=== PATIENT | female | born 1985 | race Two or more races ===

== ENCOUNTER → 2019-06-15 | Outpatient (REF) | payer OTHER | LOC: M SFHCLERA 10:00 | PROVIDERS: ATTEND Physician Assistant | DX: J02.9 Acute pharyngitis, unspecified (principal) ==

== ENCOUNTER → 2019-09-11 | Outpatient (REF) | payer OTHER ==
[2019-09-11 17:15] LABS: HEMATOCRIT 38.4 % (36.0-47.0); HEMOGLOBIN 12.6 g/dl (12.0-15.5); MEAN CORPUSCULAR HEMOGLOBIN 27.2 pg (27.0-33.0); MEAN CORPUSCULAR HGB CONC 32.8 g/dl (32.0-36.5); MEAN CORPUSCULAR VOLUME 82.9 fl (80.0-96.0); PLATELET COUNT, AUTOMATED 405 10^3/uL (150-450); RED BLOOD COUNT 4.63 10^6/uL (4.00-5.40); WHITE BLOOD COUNT 9.5 10^3/uL (4.0-10.0)
[2019-09-12 12:21] LABS: HIV 1&2 SCREEN CENTAUR NEGATIVE (NEGATIVE); RUBELLA IgG QUALITATIVE IMMUNE (IMMUNE)
== END ==
LOC: M PLALAB 15:17
PROVIDERS: ATTEND Advanced Practice Midwife
DX: Z34.81 Encounter for supervision of other normal pregnancy, first trimester (principal)

== ENCOUNTER → 2019-10-09 | Outpatient (REF) | payer OTHER ==
[2019-10-09 17:06] LABS: CHLAMYDIA DNA AMPLIFICATION NEGATIVE (NEGATIVE); GC DNA AMPLIFICATION NEGATIVE (NEGATIVE)
== END ==
LOC: M SFHCWAGY 14:46
PROVIDERS: ATTEND Advanced Practice Midwife
DX: Z34.81 Encounter for supervision of other normal pregnancy, first trimester (principal)

== ENCOUNTER → 2019-11-22 | Outpatient (CLI) | payer OTHER ==
--- NOTE | 2019-11-22 17:09 | REP ---
Clinical: Anatomical evaluation. Comparison: None for . Findings: Examination demonstrates a single live intrauterine in variable presentation. motion is identified by technologist. Placenta is noted posterior and grade zero without evidence for placenta previa or abruption. Amniotic fluid volume is normal. Cervix measures 3.3 cm in length and appears closed. No evidence for nuchal cord. Gestational age by LMP 18 weeks 5 days with RUBEN 04/19/2020 . Gestational age by current measurements 18 weeks 6 days with RUBEN 04/18/2020 . FHR equals 139 beats per minute. BPD 4.3 cm 19 weeks 0 days HC 15.9 cm 18 weeks 5 days AC 13.6 cm 19 weeks 0 days FL 3.0 cm 19 weeks 3 days HL 2.9 cm 19 weeks 3 days HC/AC ratio 1.17 Estimated weight 276 grams (63rd percentile). Anatomical assessment demonstrates normal structures including cranium, choroid plexus, cavum, cerebellum/posterior fossa, lungs, four-chamber heart/ventricular outflow tracts, diaphragm, stomach, cord insertion/three-vessel cord, kidneys/bladder, spine, and extremities. Impression: Single live intrauterine in variable presentation demonstrating appropriate interval growth. Limited evaluation of the facial features. Remainder of the anatomical assessment is complete and normal.
== END ==
LOC: M WHC 12:50
PROVIDERS: ATTEND Advanced Practice Midwife
DX: Z34.82 Encounter for supervision of other normal pregnancy, second trimester (principal)

== ENCOUNTER → 2019-12-11 | Outpatient (CLI) | payer OTHER ==
[~2019-12-11] MED LIST: ACET-683 PO; CLAR10CA3 PO; IBUP80TA PO; IRON325T2 PO; METF10004 PO; PRENTAB9 PO; ZYRTTAB8 PO
--- NOTE | 2019-12-11 14:13 | REP ---
OBSTETRIC SONOGRAPHY: HISTORY: Supervision of followup anatomy. Comparison study November 22, 2019. FINDINGS: Scanning through the gravid uterus demonstrates a viable single intrauterine gestation in a breech lie. motion is observed and heart rate is recorded at 149 beats per minute. A posterior grade 1 placenta is seen without evidence of previa. Amniotic fluid is subjectively normal. Closed cervical length is measured transabdominally at 3.5 cm. There has been appropriate interval growth. face and profile, nose and lips are seen today and felt to be unremarkable. The following additional anatomic structures are again identified and felt to be unremarkable as well: cranium, four-chamber heart with left and right ventricular outflow tract views, diaphragm, left-sided stomach, abdominal wall cord insertion, three-vessel cord, kidneys and bladder. BIOMETRY CHART: BPD 5.1 cm = 21 weeks 3 days HC 18.6 cm = 21 weeks 0 days AC 17.1 cm = 22 weeks 1 day FL 3.9 cm = 22 weeks 3 days HL 3.6 cm = 22 weeks 5 days HC/AC ratio normal 1.09 Cephalic index normal 0.77. Estimated weight 476 grams, 1 pound 0 ounces, 70th percentile for 21 weeks 3 days. IMPRESSION: Viable single intrauterine gestation at 21 weeks 3 days by today's composite criteria. Expected gestational age estimate based on prior sonography is 21 weeks 3 days as well. RUBEN by prior sonography 04/19/2020. anatomic survey is felt to be complete in conjunction with the prior study.
== END ==
LOC: M WHC 10:34
PROVIDERS: ATTEND Nurse Practitioner Women's Health
DX: Z36.2 Encounter for other antenatal screening follow-up (principal); Z3A.21 21 weeks gestation of pregnancy

== ENCOUNTER → 2020-01-31 | Outpatient (REF) | payer OTHER ==
[2020-03-19 20:07] LABS: HEMATOCRIT 31.3 % (36.0-47.0); HEMOGLOBIN 9.9 g/dl (12.0-15.5); MEAN CORPUSCULAR HEMOGLOBIN 26.4 pg (27.0-33.0); MEAN CORPUSCULAR HGB CONC 31.6 g/dl (32.0-36.5); MEAN CORPUSCULAR VOLUME 83.5 fl (80.0-96.0); PLATELET COUNT, AUTOMATED 342 10^3/uL (150-450); RED BLOOD COUNT 3.75 10^6/uL (4.00-5.40); WHITE BLOOD COUNT 9.3 10^3/uL (4.0-10.0)
== END ==
LOC: M SFHCWAGY 08:50
PROVIDERS: ATTEND Advanced Practice Midwife
DX: Z34.80 Encounter for supervision of other normal pregnancy, unspecified trimester (principal); Z3A.24 24 weeks gestation of pregnancy
CPT/HCPCS: 36415; 82950; 85027; 86850; 86900; 86901; G0463

== ENCOUNTER → 2020-02-07 | Outpatient (CLI) | payer OTHER ==
--- NOTE | 2020-03-16 07:41 | REP ---
OBSTETRIC SONOGRAPHY HISTORY: Uterine size-date discrepancy. Third trimester study growth and MADDIE. Estimated date of delivery (RUBEN) 04/19/2020. FINDINGS: Scanning through the gravid uterus demonstrates a single intrauterine gestation in a cephalic lie. The placenta is posterior grade 1 without evidence of previa or abruption. Amniotic fluid is subjectively normal. MADDIE is normal at 17.1 cm. heart rate is recorded at 140 beats per minute. Closed cervical length is 4.2 cm measured transabdominally. BIOMETRY CHART: BPD 79 mm 31 weeks 6 days Head Circumference 290 mm 32 weeks 0 days Abdominal Circumference 266 mm 30 weeks 5 days Femur Length 60 mm 31 weeks 1 day Humeral Length 58 mm 33 weeks 4 days Estimated Weight 1689 g 83rd Percentile IMPRESSION: Viable single intrauterine gestation at 31 weeks 3 days by todays criteria. Estimated date of delivery (RUBEN) 04/07/2020. Estimated weight 83rd percentile. MTDD
== END ==
LOC: M WHC 08:06
PROVIDERS: ATTEND Advanced Practice Midwife
DX: O26.843 Uterine size-date discrepancy, third trimester (principal)

== ENCOUNTER → 2020-03-04 | Outpatient (CLI) | payer OTHER ==
--- NOTE | 2020-03-20 13:17 | REP ---
LIMITED OBSTETRICAL ULTRASOUND COMPARISON: 02/07/2020 CLINICAL: Growth evaluation. TECHNIQUE: Transabdominal obstetrical ultrasound with color Doppler evaluation. FINDINGS: Examination demonstrates a single live advanced gestation in cephalic presentation. motion was identified by the technologist. Placenta is noted posteriorly and grade 2 without evidence for placenta previa or abruption. Amniotic fluid volume is normal. Cervix measures 3.3 cm in length and appears closed. Gestational age by last menstrual period (LMP) 33 weeks 3 days with estimated date of delivery 04/19/2020. Gestational age by current measurements 35 weeks 1 day with estimated date of delivery 04/07/2020. heart rate 136 beats per minute. Amniotic fluid index (MADDIE) 12.1 cm. BIOMETRIC MEASUREMENTS: BPD 8.5 cm 34 weeks 1 day HC 31.5 cm 35 weeks 2 days AC 31.9 cm 35 weeks 6 days FL 6.6 cm 34 weeks 0 days HL 6.2 cm 36 weeks 1 day HC/AC ratio 0.99 Estimated weight 2599 g 80th percentile based on age by LMP IMPRESSION: Single live advanced gestation in cephalic presentation demonstrating appropriate estimated weight and growth. [facility]
== END ==
LOC: M WHC 09:44
PROVIDERS: ATTEND Advanced Practice Midwife
DX: O24.415 Gestational diabetes mellitus in pregnancy, controlled by oral hypoglycemic drugs (principal); Z3A.33 33 weeks gestation of pregnancy

== ENCOUNTER 2020-03-16 22:31 | Outpatient (CLI) | payer OTHER ==
[~2020-03-16] VITALS: Ht 154.9 cm; Wt 85.6 kg
[2020-03-16 22:47] VITALS: BP 107/61
[2020-03-16 23:51] LABS: APPEARANCE, URINE CLEAR (CLEAR); BACTERIA, URINE AUTO 1+ (NEGATIVE); BILIRUBIN, URINE AUTO NEGATIVE (NEGATIVE); BLOOD, URINE BLOOD NEGATIVE (NEGATIVE); COLOR, URINE STRAW (YELLOW); GLUCOSE, URINE (UA) AUTO NEGATIVE (NEGATIVE); KETONE, URINE AUTO NEGATIVE (NEGATIVE); LEUKOCYTE ESTERASE, URINE AUTO TRACE (NEGATIVE); NITRITE, URINE AUTO NEGATIVE (NEGATIVE); PROTEIN, URINE AUTO NEGATIVE (NEGATIVE); RBC, URINE AUTO 1 /HPF (0-3); SPECIFIC GRAVITY URINE AUTO 1.005 (1.002-1.035); SQUAMOUS EPITHELIAL CELL UR AU 1 /HPF (0-6); UROBILINOGEN, URINE AUTO 0.2 mg/dL (0.0-2.0); WBC, URINE AUTO 1 /HPF (0-3)
[2020-03-17] VITALS (26 sets, daily range): BP systolic 97–128; BP diastolic 51–69
[2020-03-17] MEDS ORDERED: PROMETHAZINE INJ 25 MG/ML VIAL (J2550) As Ordered ONE (00:37)
[2020-03-17] MEDS ORDERED: BUTORPHANOL 2 MG/ML INJ (J0595) As Ordered ONE (00:37)
[2020-03-17] MEDS ORDERED: PROMETHAZINE INJ 25 MG/ML VIAL (J2550) IV ONE (00:45)
[2020-03-17] MEDS ORDERED: BUTORPHANOL 2 MG/ML INJ (J0595) IV ONE ×2 (00:45→06:00)
[2020-03-17] MEDS: BETAMETHASONE SOLUSPAN 6MG/ML 5ML VIAL (J0702 PER 3MG) IM SCH (01:02)
[2020-03-17 01:27] LABS: HEMATOCRIT 33.8 % (36.0-47.0); HEMOGLOBIN 10.4 g/dl (12.0-15.5); MEAN CORPUSCULAR HEMOGLOBIN 24.9 pg (27.0-33.0); MEAN CORPUSCULAR HGB CONC 30.8 g/dl (32.0-36.5); MEAN CORPUSCULAR VOLUME 80.9 fl (80.0-96.0); PLATELET COUNT, AUTOMATED 253 10^3/uL (150-450); RED BLOOD COUNT 4.18 10^6/uL (4.00-5.40); WHITE BLOOD COUNT 8.8 10^3/uL (4.0-10.0)
--- NOTE | 2020-03-17 01:29 | IPNPDOC ---
Text Note Date of Service The patient was seen on 03/17/20. NOTE Subjective: Ruchi is a 34-year-old female who is a at 35.1 weeks gestation with an RUBEN of 04/19/20. No records are available to review. She initiated care in her first trimester of with [facility]. Her has been complicated by A2GDM which she is taking Metformin 1000 mg PO BID. She presents to L&D tonight with complaints of contractions. She reports contractions have been occurring for a few days but more intense and regular tonight. At 1630 she reports contractions to be about every 9 minutes and rated them a 4 out of 10. She now reports her contractions are a 6 out of 10 for pain scale. She denies bloody show or vaginal bleeding. She denies leaking of fluid. Reports good movement. She is scheduled for an IOL on 03/29/20 OB History: -11/11/05: of living female at 38 weeks weighting 7 lbs 9 oz., no complications -06/28/11: of living female at 38 weeks weighting 8 lbs, no complications -10/24/16: of living female at 37 weeks weighting 8 lbs 9 oz, no complications OB labs: A+, negative antibody, rubella immune, Hepatitis C negative, Hepatitis B negative, RPR nonreactive, GC/CT negative, urine culture negative. Medical history: GDM and colitis Surgical history: gallbladder and wisdom teeth Family history: lung cancer, HTN, DM Social history: . Former social smoker. Denies alcohol or drug use during . History of chlamydia and HPV with condyloma. Objective: VS and labs: see below. FHR 120, moderate variability, positive accelerations, no decelerations. Contractions every 2 to 9 minutes. SVE by nurse 1.5 hours ago 3/25/-3, soft. Exam done now by practitioner is 4/75/-2, anterior, soft, scant show. A+O x3. Appears uncomfortable with some contractions-grimace. Respiratory rate is regular with no use of accessory muscles. Abdomen: gravid and soft to palpation between contractions. Contractions palpate mild to moderate. Cephalic presentation noted by bedside ultrasound. Assessment: IUP at 35.1 week gestation, A2GDM, rule out labor, Category I FHR tracing Plan: Start IV. Betamethasone to be given IM now and again in 24 hours. Labs obtained and sent for hold. UA obtained. GBS obtained. Ruchi desires something to help her sleep/rest. Stadol and Phenergan ordered. Will recheck cervix in morning or if pain or contractions increase in frequency. Will continue to monitor. VS,Fishbone, I+O VS, Fishbone, I+O VS: BP: 115/75; HR: 88; RR: 18; Temp: 98.1 Fingerstick: 86 Item Value Date Time Urine Color STRAW 03/16/202329 Urine Appearance CLEAR 03/16/202329 Urine pH 9.0 UNITS 03/16/202329 Urine Specific [place] 1.005 03/16/202329 Urine Protein NEGATIVE mg/dL 03/16/202329 Urine Glucose (Auto)(UA) NEGATIVE mg/dL 03/16/202329 Urine Ketones (Auto) NEGATIVE mg/dL 03/16/202329 Urine Blood NEGATIVE 03/16/202329 Urine Nitrite NEGATIVE 03/16/202329 Urine Bilirubin NEGATIVE 03/16/202329 Urine Urobilinogen 0.2 mg/dL 03/16/202329 Urine Leukocyte Esterase (Auto) TRACE H 03/16/202329 Urine RBC (Auto) 1 /HPF 03/16/202329 Urine WBC (Auto) 1 /HPF 03/16/202329 Urine Hyaline Casts (Auto) 0 /LPF 03/16/202329 Urine Bacteria (Auto) 1+ H 03/16/202329 Urine Squamous Epithelial Cells 1 /HPF 03/16/202329 DERECK NAIDU CNM Mar 17, 2020 01:29
[2020-03-17] MEDS ORDERED: PROMETHAZINE INJ 25 MG/ML VIAL (J2550) IM ONE (06:00)
[2020-03-17] MEDS: metFORMIN (GLUCOPHAGE) 1000 MG TABLET PO SCH ×2 (08:00→17:55)
[2020-03-17] MEDS ORDERED: SLF 3 ML SYR IV PRN (16:30)
[2020-03-17] MEDS ORDERED: diphenhydrAMINE 25MG CAP PO ONE (20:00)
[2020-03-17] MEDS ORDERED: diphenhydrAMINE 50MG/ML VIAL (J1200) IV ONE (20:00)
[2020-03-17] MEDS ORDERED: SLF 3 ML SYR IV SCH (22:00)
[2020-03-18 00:58] VITALS: BP 104/56
[2020-03-18] MEDS: BETAMETHASONE SOLUSPAN 6MG/ML 5ML VIAL (J0702 PER 3MG) IM SCH (00:59)
== END 2020-03-18 01:20 | disposition home or self-care (01) ==
LOC: M LDO 22:31
PROVIDERS: ATTEND Advanced Practice Midwife
DX: O47.03 False labor before 37 completed weeks of gestation, third trimester (principal); O24.415 Gestational diabetes mellitus in pregnancy, controlled by oral hypoglycemic drugs; Z3A.35 35 weeks gestation of pregnancy
CPT/HCPCS: 59025; 76815; 81001; 85027; 87081; 96372; 96374; 96375; 96376; G0378; G0463; J0595; J0702

== ENCOUNTER 2020-03-29 07:38 | Inpatient (IN) | payer OTHER ==
[2020-03-29] VITALS (21 sets, daily range): BP systolic 98–137; BP diastolic 56–93
[~2020-03-29] VITALS: Ht 154.9 cm; Wt 84.9 kg
[2020-03-29] MEDS ORDERED: OXYTOCIN DRIP 30 UNITS in IV 1 EA IV SCH ×2 (08:00→19:45)
--- NOTE | 2020-03-29 08:07 | HPEPDOC ---
Obstetrical History & Physical General Date of Admission Mar 29, 2020 at 07:38 History of Present Illness 34 yo at 37 0/7 weeks by 8 week ultrasound (EDC=04/19/2020) presents for lab or induction. The indication for induction <39 weeks is poorly controlled A2 Gestational diabetes. She is on Metformin 100 mg twice a day. Age: 34 : 5 Term: 3 Pre-term: 0 Abortions: 1 Livin Care Care: Good Care Dating Final EDC: Apr 19, 2020 Final EDC for Daily Update: Apr 19, 2020 Final EDC by: 1st trimester (US) EGA at Admission: 37 Antepartum Course Diagnos(e)s A2GDM on MEtformin 100 mg BID Past Medical History Past Obstetrical History : Past Obstetrical History: Multigravida Date of Delivery: November 11, 2005 Type of Delivery: Spontaneous Vaginal Del. Sex of : Female Complications: No Past Medical History Medical History none Surgical History: Gallbladder Social History Marital Status: Family situation: Spouse/partner home * Smoker: non-smoker Alcohol: Denies Abuse Violence Screening Have you been hit/kicked/slapp: No Have you been sexually assault: No Allergies Coded Allergies: Penicillins (Verified Allergy, Unknown, 03/17/20) Physical Examination Physical Examination GENERAL: Alert and oriented times three. BREAST: . ABDOMEN: Gravid and non-tender to touch. FETUS: Is vertex (VTX) by sterile vaginal examination (SVE), fetus is vertex (VTX) by Oziel. HEART RATE: Regular rate and rhythm. LUNGS: Clear to auscultation (CTA). EXTREMITIES: No edema. No clonus. Deep tendon reflexes (DTRs) + . Laboratory Data 24H LABS Laboratory Tests 2 03/29/20 07:49: Serology Scanned Report Hepatitis B Testing Pertinent Laboratoy Data RBC Antibody Screen: Negative HIV: Negative Hepatitis B: Negative Hepatitis C: Negative Rapid Plasma Reagin: Immune Chlamydia/Gonorrhea: Negative Group B Streptococcus: Negative Glucose Tolerance Test: 146 Steroid Therapy Steroid Therapy: No Vaginal Examination Dilation: 4 cm Effacement: 70% Station: -2 Cervical Consistency: Medium Cervical Position: Middle Presentation: Cephalic presentation Assessment Variability: Moderate Accelerations: Positive Decelerations: None Tocometer Contractions: No Assessment/Plan Assessment Pt is a 34 year-old (G)5 para (P)3-0-1-3 at 37+0 weeks by 8-week ultrasound. Presents to Labor and Delivery (L&D) for induciton due to A2GDM. Plan Admit and orient. 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 Group B Streptococcus (GBS) [negative]. Labs and intravenous (IV) per unit protocol. Counseled on Pitocin and induction of labor (IOL). Anticipate [normal spontaneous delivery ()]. C-S as appropriate. CHAPARRITA NORTON MD Mar 29, 2020 08:07
[2020-03-29 08:28] LABS: HEMOGLOBIN 10.6 g/dl (12.0-15.5); MEAN CORPUSCULAR HEMOGLOBIN 24.7 pg (27.0-33.0); MEAN CORPUSCULAR HGB CONC 30.3 g/dl (32.0-36.5); MEAN CORPUSCULAR VOLUME 81.4 fl (80.0-96.0); PLATELET COUNT, AUTOMATED 261 10^3/uL (150-450)
[2020-03-29] MEDS ORDERED: METF10004 PO (08:29)
[2020-03-29] MEDS ORDERED: IRON325T2 PO (08:29)
[2020-03-29] MEDS ORDERED: PRENTAB9 PO (08:29)
[2020-03-29] MEDS ORDERED: CLAR10CA3 PO (08:29)
[2020-03-29] MEDS ORDERED: ZYRTTAB8 PO ×2 (08:30→08:32)
[2020-03-29] MEDS ORDERED: ACET-683 PO (08:30)
[2020-03-29 08:41] LABS: GLUCOSE,RANDOM 99 MG/DL (LESS THAN 200)
[2020-03-29] MEDS: LR 1,000 ML IV SCH ×3 (08:52→16:15)
[2020-03-29] MEDS ORDERED: FENTANYL 2MCG/ML ROPIVACAINE 0.2% IN 0.9% NACL 100ML IVBAG As Ordered ONE (15:34)
[2020-03-29] MEDS ORDERED: ONDANSETRON 4MG/2ML VIAL IV PRN (16:30)
[2020-03-29] MEDS ORDERED: EPIDURAL/PCA KEYS XX PRN (16:30)
[2020-03-29] MEDS ORDERED: NALOXONE INJ 0.4MG/1ML VIAL (J2310 PER 1MG) IV PRN (16:30)
[2020-03-29] MEDS ORDERED: LACTATED RINGER'S 1000 ML IV PRN (16:30)
[2020-03-29] MEDS ORDERED: REFRIGERATOR IV KEYS XX PRN (16:30)
[2020-03-29] MEDS ORDERED: ePHEDrine SULFATE 25 MG/5 ML(5MG/ML) SYRINGE IV PRN (16:30)
[2020-03-29] MEDS ORDERED: diphenhydrAMINE 50MG/ML VIAL (J1200) IV PRN (16:30)
[2020-03-29] MEDS ORDERED: EPIDURAL COMMENT XX SCH (16:30)
[2020-03-29] MEDS ORDERED: FENTANYL/ROPIVACAINE/NACL BAG 100 ML EPIDURAL SCH (16:30)
--- NOTE | 2020-03-29 17:26 | DNPDOC ---
[facility] Delivery Note Delivery Note DATE OF DELIVERY: 03/29/2020 PREDELIVERY DIAGNOSIS: 37-0/7 weeks' gestation, A2 GDM, induction POST DELIVERY DIAGNOSIS: Delivered. PROCEDURE: Spontaneous vaginal delivery LUMP MAKER: Dr. Chaparrita Norton MD ANESTHESIA: none ESTIMATED BLOOD LOSS: 300 mL. FINDINGS: 8 pound 15 ounce female , Score 8/9 DELIVERY SUMMARY: Patient is a 34-year-old 5 now para 4-0-1-4 who was admitted to labor and delivery for induction due to A2 GDM. Pt received Oxytocin for induction. She had spontaneous vaginal delivery of a 8 lb 15 oz female with no delivery anesthesia. No nuchal cord. Shoulders delivered with ease. Placenta delivered spontaneously and appeared intact. IV Pitocin was given immediately after delivery of the placenta. No vaginal lacerations. Sponge counts correct. CHAPARRITA NORTON MD Mar 29, 2020 17:26
[2020-03-29] MEDS ORDERED: METHYLERGONOVINE MALEATE 0.2 MG TAB PO PRN (17:30)
[2020-03-29] MEDS ORDERED: IBUPROFEN 600MG TAB PO PRN (17:30)
[2020-03-29] MEDS ORDERED: DIBUCAINE 1% OINTMENT 30GM TOP PRN (17:30)
[2020-03-29] MEDS ORDERED: ACETAMINOPHEN TAB 650MG DOSE (2X325MG) PO PRN (17:30)
[2020-03-29] MEDS ORDERED: OXYTOCIN DRIP 30 UNITS in IV 1 EA IV ONE (17:30)
[2020-03-29] MEDS ORDERED: MEASLES,MUMPS,RUBELLA VACCINE INJ (MMR-II) (90707) SC SCH (17:30)
[2020-03-29] MEDS ORDERED: RHOGAM 300 MCG (1500 IU) INJ (J2790) IM SCH (17:30)
[2020-03-29] MEDS ORDERED: DOCUSATE SODIUM 100 MG CAP PO PRN (17:30)
[2020-03-29] MEDS: IBUPROFEN 800 MG TAB PO PRN (18:23)
[2020-03-29] MEDS ORDERED: METHYLERGONOVINE MALEATE 0.2 MG/ML VIAL (J2210) As Ordered ONE (18:35)
[2020-03-29] MEDS ORDERED: METHYLERGONOVINE MALEATE 0.2 MG/ML VIAL (J2210) IM ONE (19:00)
[2020-03-29] MEDS: ACETAMINOPHEN 500 MG TAB PO PRN (19:37)
[2020-03-29] MEDS ORDERED: miSOPROStol 200 MCG TAB (S0191) PR ONE (19:45)
[2020-03-30] MEDS: ACETAMINOPHEN 500 MG TAB PO PRN (02:08)
[2020-03-30 06:18] VITALS: BP 114/58
[2020-03-30] MEDS: PRENATAL VITAMINS CHEWABLE TABLET PO SCH (07:09)
[2020-03-30] MEDS: IBUPROFEN 800 MG TAB PO PRN ×2 (07:10→16:20)
[2020-03-30 18:00] VITALS: BP 114/68
[2020-03-31 06:01] VITALS: BP 99/58
[2020-03-31] MEDS: ACETAMINOPHEN 500 MG TAB PO PRN ×2 (06:12→14:13)
[2020-03-31] MEDS: PRENATAL VITAMINS CHEWABLE TABLET PO SCH (07:40)
[2020-03-31] MEDS: IBUPROFEN 800 MG TAB PO PRN (07:40)
[2020-03-31] MEDS ORDERED: INFLUENZA QUADRIVALENT PF VACCINE 0.5ML SYRINGE IM ONE (09:00)
[2020-03-31] MEDS ORDERED: ACET-683 PO (11:36)
[2020-03-31] MEDS ORDERED: IBUP80TA PO (11:36)
== END 2020-03-31 14:15 | disposition home or self-care (01) | DRG 807 ==
LOC: M LDI 07:38 → M OBS 22:20
PROVIDERS: ADMIT Specialist; ATTEND Specialist
PROC: 10E0XZZ Delivery of Products of Conception, External Approach (ICD-10-PCS; principal; 2020-03-29)
PROC: 3E033VJ Introduction of Other Hormone into Peripheral Vein, Percutaneous Approach (ICD-10-PCS; 2020-03-29)
DX: O24.425 Gestational diabetes mellitus in childbirth, controlled by oral hypoglycemic drugs (principal); Z37.0 Single live birth; Z3A.37 37 weeks gestation of pregnancy

== ENCOUNTER → 2020-08-18 | Outpatient (REF) | payer OTHER | LOC: M LAB REF 18:23 | PROVIDERS: ATTEND Family Medicine | DX: R09.81 Nasal congestion (principal) ==

== ENCOUNTER → 2020-11-12 | Outpatient (CLI) | payer OTHER ==
--- NOTE | 2020-11-12 09:19 | REPMRS ---
Patient History The patient states she has not had a clinical breast exam in over a year. Baseline mammogram Family history of breast cancer at age 54 in paternal aunt, ovarian cancer at age 45 in mother. patient states no breast complaints. Patient has signed the MRS history sheet. Digital Woman Screen Mammo: November 12, 2020 - Exam #: [id number] Bilateral CC and MLO view(s) were taken. Technologist: Priscilla Cruz, Technologist No prior studies available for comparison. FINDINGS: There are scattered fibroglandular densities. The Volpara volumetric breast density category is: B. There is no evidence of dominant mass, architectural distortion, or grouped microcalcification typical of malignancy. 3-D tomosynthesis shows no additional findings. Assessment: BI-RADS/ACR category 1 mammogram. Negative Mammogram. Recommendation Routine screening mammogram of both breasts in 1 year (for women over age 40). This patient's [facility] Lifetime Breast Cancer RIsk is estimated at 13.8 %. This mammogram was interpreted with the aid of an FDA-approved computer-aided dectection system. Electronically Signed By: Stewart Garrett MD 11/12/20 0919
== END ==
LOC: M WHC 08:31
PROVIDERS: ATTEND Physician Assistant
DX: Z12.31 Encounter for screening mammogram for malignant neoplasm of breast (principal); Z15.01 Genetic susceptibility to malignant neoplasm of breast; Z80.41 Family history of malignant neoplasm of ovary

== ENCOUNTER → 2020-11-27 | Outpatient (CLI) | payer OTHER ==
[2020-11-27 14:26] LABS: BASO % 0.7 % (0.0-1.0); EOS # 0.1 10^3/uL (0.0-0.5); EOS % 1.5 % (0.0-3.0); HEMATOCRIT 38.7 % (36.0-47.0); HEMOGLOBIN 12.1 g/dl (12.0-15.5); LYMPH # 1.9 10^3/uL (1.5-5.0); MEAN CORPUSCULAR HEMOGLOBIN 24.8 pg (27.0-33.0); MEAN CORPUSCULAR HGB CONC 31.3 g/dl (32.0-36.5); MEAN CORPUSCULAR VOLUME 79.3 fl (80.0-96.0); MONO # 0.5 10^3/uL (0.0-0.8); NEUTROPHILS # 3.4 10^3/uL (1.5-8.5); NEUTROPHILS % 56.6 % (36.0-66.0); PLATELET COUNT, AUTOMATED 349 10^3/uL (150-450); RED BLOOD COUNT 4.88 10^6/uL (4.00-5.40)
[2020-11-27 14:57] LABS: ALBUMIN 3.6 GM/DL (3.2-5.2); ALT/SGPT 19 U/L (12-78); BILIRUBIN,TOTAL 0.2 MG/DL (0.2-1.0); BLOOD UREA NITROGEN 9 MG/DL (7-18); CALCIUM LEVEL 9.1 MG/DL (8.5-10.1); CARBON DIOXIDE LEVEL 28 MEQ/L (21-32); CHLORIDE LEVEL 107 MEQ/L (98-107); CREATININE FOR GFR 0.52 MG/DL (0.55-1.30); FREE T4 0.84 NG/DL (0.76-1.46); GLOMERULAR FILTRATION RATE > 60.0 (>60); GLUCOSE, FASTING 88 MG/DL (70-100); POTASSIUM SERUM 4.6 MEQ/L (3.5-5.1); SODIUM LEVEL 139 MEQ/L (136-145); TOTAL PROTEIN 7.5 GM/DL (6.4-8.2)
[2020-11-27 17:39] LABS: HEMOGLOBIN A1c 5.5 %
== END ==
LOC: M LAB 13:07
PROVIDERS: ATTEND Physician Assistant
DX: Z13.29 Encounter for screening for other suspected endocrine disorder (principal)

== ENCOUNTER → 2021-06-03 | Outpatient (REF) | payer OTHER | LOC: M LAB REF 20:34 | PROVIDERS: ATTEND Family Medicine | DX: J06.9 Acute upper respiratory infection, unspecified (principal) ==

== ENCOUNTER → 2021-06-22 | Outpatient (CLI) | payer OTHER ==
--- NOTE | 2021-06-22 20:51 | REP ---
INDICATION: SUBACUTE COUGH COMPARISON: None. TECHNIQUE: PA and lateral. FINDINGS: The mediastinum and cardiac silhouette are normal. The lung dobbins are clear and without acute consolidation, effusion, or pneumothorax. The skeletal structures are intact and normal. IMPRESSION: No acute cardiopulmonary process. <Electronically signed by Giovanni Coley > 06/22/21 0556
== END ==
LOC: M RAD 16:21
PROVIDERS: ATTEND Nurse Practitioner Adult Health
DX: R05.2 Subacute cough (principal)

== ENCOUNTER → 2021-09-20 | Outpatient (CLI) | payer OTHER | LOC: M PLALAB 11:00 | PROVIDERS: ATTEND Nurse Practitioner Adult Health | DX: M75.52 Bursitis of left shoulder (principal) ==